=== PATIENT | male | born 1960 | race African-American/Black ===

== ENCOUNTER 2024-05-22 08:55 | Day surgery (SDC) | payer OTHER ==
[2024-05-19 14:50] VITALS: BMI 34.2
[2024-05-22 09:46] VITALS: RESP 18
[2024-05-22 10:41] VITALS: TEMP 97.5
[2024-05-22 10:45] VITALS: BP 121/67; PULSE 83
== END 2024-05-22 10:55 | disposition home or self-care (01) ==
LOC: FASU-ENDO 08:55
PROVIDERS: ATTEND Internal Medicine Gastroenterology
PROC: 0DJD8ZZ Inspection of Lower Intestinal Tract, Via Natural or Artificial Opening Endoscopic (ICD-10-PCS; principal; 2024-05-22 10:00)
DX: Z12.11 Encounter for screening for malignant neoplasm of colon (principal)